=== PATIENT | male | born 2000 | race Caucasian/White ===

== ENCOUNTER 2022-10-26 15:19 | Emergency (ER) | payer OTHER ==
[2022-10-26 15:47] VITALS: BP 151/97; PULSE 88; RESP 18; TEMP 99; BMI 21.7
== END 2022-10-26 16:35 | disposition home or self-care (01) ==
LOC: FER 15:19
DX: S19.9XXA Unspecified injury of neck, initial encounter (principal); W22.8XXA Striking against or struck by other objects, initial encounter; Y93.F2 Activity, caregiving, lifting; Y92.39 Other specified sports and athletic area as the place of occurrence of the external cause
CPT/HCPCS: 70450-TC; 72125-TC; 99284-25